=== PATIENT | female | born 1995 | race Hispanic/Latino ===

== ENCOUNTER 2021-11-25 23:02 | Day surgery (SDC) | payer OTHER ==
[2021-11-25 23:32] VITALS: BMI 32.5
[2021-11-26 00:21] LABS: Fetal Membranes Rupture No Membranes Rupture (No Rupture)
[2021-11-26] MEDS ORDERED: hydrALAZINE 20 MG/ML VIAL SLOW IVP PRN (00:26)
== END 2021-11-26 01:31 | disposition home or self-care (01) ==
LOC: CSHLD/OP 23:02
PROVIDERS: ATTEND Advanced Practice Midwife
DX: O47.1 False labor at or after 37 completed weeks of gestation (principal); Z3A.37 37 weeks gestation of pregnancy
CPT/HCPCS: 84112; 99283